=== PATIENT | female | born 1995 | race Two or more races ===

== ENCOUNTER 2020-11-25 22:39 | Emergency (ER) | payer MEDICAID, OTHER ==
[~2020-11-25] VITALS: Ht 154.9 cm; Wt 87.0 kg
[2020-11-25] MEDS ORDERED: IBUPROFEN 600MG TABLET PO ONE (23:00)
[2020-11-25] MEDS ORDERED: BACITRACIN ZINC OINT UDPKT TOP ONE (23:00)
[2020-11-25] MEDS ORDERED: LIDOCAINE HCL/PF 1% 10 MG/ML 5ML VIAL IJ ONE (23:00)
[2020-11-26 00:28] VITALS: BP 133/76
== END 2020-11-26 00:30 | disposition home or self-care (01) ==
LOC: ER 22:39
DX: S01.112A Laceration without foreign body of left eyelid and periocular area, initial encounter (principal); W45.8XXA Other foreign body or object entering through skin, initial encounter; Y93.89 Activity, other specified; Y92.89 Other specified places as the place of occurrence of the external cause; Y99.8 Other external cause status
CPT/HCPCS: 12011; 81025; 99282; J3490

== ENCOUNTER 2020-12-04 19:20 | Emergency (ER) | payer MEDICAID ==
[~2020-12-04] VITALS: Ht 154.9 cm; Wt 88.0 kg
[2020-12-04] MEDS ORDERED: TETANUS, DIPHTHERIA, PERTUSSIS VAC/PF 0.5ML (>7YR OLD) IM ONE (19:45)
[2020-12-04 20:03] VITALS: BP 125/62
== END 2020-12-04 20:06 | disposition home or self-care (01) ==
LOC: ER 19:24
DX: Z48.02 Encounter for removal of sutures (principal); Z23 Encounter for immunization; R03.0 Elevated blood-pressure reading, without diagnosis of hypertension
CPT/HCPCS: 90471; 90715; 99283; Z7610

== ENCOUNTER 2023-09-18 00:51 | Emergency (ER) | payer SELFPAY ==
[2023-09-18 01:01] VITALS: PULSE 114
== END 2023-09-18 01:21 | disposition left against medical advice (07) ==
LOC: ER 00:51
DX: F41.9 Anxiety disorder, unspecified (principal); Z53.21 Procedure and treatment not carried out due to patient leaving prior to being seen by health care provider

== ENCOUNTER 2024-11-10 22:33 | Emergency (ER) | payer MEDICAID ==
[~2024-11-10] VITALS: Ht 154.9 cm; Wt 88.9 kg
[2024-11-10 22:41] VITALS: BP 138/90; PULSE 108; RESP 16; TEMP 37.33632; O2SAT 97; O2SAT 98
[2024-11-11] MEDS: ONDANSETRON HCL 4MG TABLET PO ONE (00:34)
== END 2024-11-11 00:35 | disposition left against medical advice (07) ==
LOC: ER 22:33
DX: R11.2 Nausea with vomiting, unspecified (principal); F41.9 Anxiety disorder, unspecified; Z53.21 Procedure and treatment not carried out due to patient leaving prior to being seen by health care provider
CPT/HCPCS: Q0162